=== PATIENT | female | born 1975 | race Hispanic/Latino ===

== ENCOUNTER → 2019-05-14 | Day surgery (SDC) | payer BC ==
[2019-05-07 15:14] LABS: BASOPHILS % 0.3 % (0.0-1.0); EOSINOPHILS % 0.6 % (0.0-6.0); HEMATOCRIT 37.8 % (34.2-44.1); HEMOGLOBIN 11.9 g/dL (12.0-16.0); LYMPHOCYTES # (AUTO) 1.6 (1.0-3.2); LYMPHOCYTES % 24.9 % (18.0-39.1); MEAN CORPUSCULAR HEMOGLOBIN 26.3 pg (28-32); MEAN CORPUSCULAR HGB CONC 31.5 g/dL (31-35); MEAN CORPUSCULAR VOLUME 83.6 fL (81-99); MONOCYTES # (AUTO) 0.5 (0.2-0.8); MONOCYTES % 7.9 % (4.4-11.3); NEUTROPHILS # (AUTO) 4.2 (2.1-6.9); NEUTROPHILS % 66.1 % (38.7-80.0); PLATELET COUNT 291 x10e3/uL (140-360); RED BLOOD COUNT 4.52 x10e6/uL (3.6-5.1); RED CELL DISTRIBUTION WIDTH 14.4 % (11.7-14.4)
[2019-05-07 15:32] LABS: BLOOD UREA NITROGEN 17 mg/dL (7-26); BUN/CREATININE RATIO 21 (6-25); CALCIUM 8.9 mg/dL (8.4-10.2); CARBON DIOXIDE 23 mmol/L (22-29); CHLORIDE 107 mmol/L (98-107); CREATININE, SERUM 0.81 mg/dL (0.57-1.11); EST GLOMERULAR FILTRATION RATE > 60 ML/MIN (60-); GLUCOSE 105 mg/dL (74-118); SODIUM 138 mmol/L (136-145)
--- NOTE | 2019-05-07 15:36 | Diagnostic Imaging Report ---
EXAMINATION: CHEST 2 VIEWS INDICATION: Pre-operative COMPARISON: None FINDINGS: LINES/TUBES:None LUNGS:The lungs are well-inflated. No focal consolidation or pulmonary edema. PLEURA:No pleural effusion or pneumothorax. MEDIASTINUM:The cardiomediastinal silhouette appears normal in size and shape. BONES/SOFT TISSUES:No acute osseous injury. ABDOMEN:No free air under the diaphragm. IMPRESSION: No focal pneumonia or pulmonary edema. Signed by: Madi Carmona MD on 05/07/2019 3:33 PM
[~2019-05-14] MED LIST: ACETAMINOPHEN 1000 MG/100 ML IV ONE; BETAMETHASONE DISODIUM PHOS 6 MG/ML VIAL ONE; BUPIVACAINE HCL 0.5% INJ 30 ML VIAL INJ ONE; CEFAZOLIN SOD 1 GM/NS 50ML 100 ML IV ONE; DEXAMETHASONE SOD PHOS INJ 4 MG/ML VIAL ONE; FENTANYL CITRATE/PF 100MCG/2 ML INJ ONE; KETOROLAC TROMETHAMINE 30 MG/ML VIAL ONE; LIDOCAINE HCL 1% LOCAL INJ 20 ML VIAL ONE; LIDOCAINE HCL 2% LOCAL INJ 5 ML SDV VIAL INJ ONE; MIDAZOLAM HCL 2 MG/2 ML VIAL ONE; MUPIROCIN 2% OINT 22 GM TUBE ONE; OMEPRAZOLE40 MG PO; ONDANSETRON HCL INJ 2MG/ML 2ML 2 MG/ML VIAL ONE; PROPOFOL IV EMULSION 10 MG/ML 20 ML VIAL ONE; SEVOFLURANE INHAL SOLN 250 ML PEN BTL ONE; VIMOVO PO
--- OUTSIDE RECORDS SUMMARY | 2019-05-14 05:50 | XMS REPORT ---
[facility] Address Unknown Phone Unavailable Care Team Providers Care Precision Devices Inspector/Tester Name Role Phone JONATAN LOPEZ Unavailable Unavailable Problems This patient has no known problems. Allergies, Adverse Reactions, Alerts This patient has no known allergies or adverse reactions. Medications This patient has no known medications. Results Test Description Test Time Test Comments Text Results Atomic Results Result Comments CHEST 2 VIEWS 2019-05-07 15:32:00 [place] [address] Patient Name: CASS LAW MR #: [id number] : 1975 Age/Sex: 44/F Req #: [id number] Adm Physician: Ordered by: JONATAN LOPEZ DPM Report #: [id number] Location: OR Room/Bed: Procedure: [id number] DX/CHEST 2 VIEWS Exam Date: Exam Time: REPORT STATUS: Signed EXAMINATION: CHEST 2 VIEWS INDICATION: Pre-operative COMPARISON: None FINDINGS: LINES/TUBES:None LUNGS:The lungs are well- inflated. No focal consolidation or pulmonary edema. PLEURA:No pleural effusion or pneumothorax. MEDIASTINUM:The cardiomediastinal silhouette appears normal in size and shape. BONES/SOFT TISSUES:No acute osseous injury. ABDOMEN:No free air under the diaphragm. IMPRESSION: No focal pneumonia or pulmonary edema. Signed by: Fei Oliveros MD on 05/07/2019 3:33 PM Dictated By: FEI OLIVEROS MD [id number] Transcribed By: ELENA on 05/07/19 1533 COPY TO: JONATAN LOPEZ DPM SCR MAMM BILATERAL CAROLYN CAD DIGITAL 2018-12-20 09:48:36 - SCR MAMM BILATERAL CAROLYN CAD DIGITALBILATERAL DIGITAL SCREENING MAMMOGRAM 3D/2D WITH CAD: 12/18/2018CLINICAL: Asymptomatic. Digital breast tomosynthesis was performed in addition to routine CC and MLO views. Current mammographic images were evaluated by either a Celect M-Vu or a [employer] ImageChecker CAD (computer aided detection system). Comparison is made to exams dated 11/14/2017 mammogram, 07/26 mammogram, and 06/04/2014 mammogram - [facility]. There are scattered fibroglandular tissues in both breasts. There are benign calcifications in both breasts. No suspicious mass, architectural distortion, malignant type calcification, or lymph node abnormality detected. Breast architecture is stable compared to prior exams.IMPRESSION: BENIGNThere is no mammographic evidence of malignancy. Resume annual screening mammography in one year. Jean Marie parada/shade:12/20/2018 09:48:36 copy to: [facility], ph: [phone], fax: [phone] Technologist: Lennie Reese , [facility] sent: BIRADS 1-2 Normal Mammogram BI-RADS: 2 Benign
--- NOTE | 2019-05-14 09:20 | Diagnostic Imaging Report ---
Left foot, 2 views. History: Postop. Findings: Overlying casting material and surgical drain are noted. Bone mineralization is normal. Surgical pin traverses the fourth toe. Bones are in gross anatomic alignment. There is no evidence of acute fracture or dislocation. There are no lytic or sclerotic lesions. The joint spaces are within normal limits. A small plantar calcaneal spur is present. IMPRESSION: Postoperative changes as noted above. Signed by: Mirza Crespo on 05/14/2019 9:17 AM
[2019-05-14 10:00] VITALS: BP 142/74
--- NOTE | 2019-05-14 15:01 | Operative Report ---
DATE OF PROCEDURE: 05/14/2019 SURGEON: Higinio Butterfield DPM PREOPERATIVE DIAGNOSES: 1. Painful hallux valgus deformity, left foot. 2. Painful contracted hammertoe, 4th digit, left foot. 3. Painful contracted hammertoe, 5th digit, left foot. 4. Painful heel spur syndrome, left foot. POSTOPERATIVE DIAGNOSES: Confirmed. OPERATIVE PROCEDURES: 1. Silver bunionectomy, left foot. 2. Arthroplasty of 4th digit with K-wire fixation. 3. Arthroplasty of 5th digit. 4. Resection of plantar calcaneal heel spur. 5. Trigger point shot of cortisone. 6. Intraoperative use of fluoroscopy. 7. Application of posterior splint. ANESTHESIA: General. HEMOSTASIS: Pneumatic thigh tourniquet at 350 mmHg. PROCEDURE IN DETAIL: The patient was taken into the operating room and placed on the operating table in supine position. Following induction of general anesthesia by the anesthesiologist, Webril wraps were placed on the patient's left thigh, followed by application of left thigh tourniquet. The left lower extremity was then prepped and draped in the usual aseptic manner and following procedures were then performed: Procedure #1: Silver bunionectomy, left foot. Attention was directed to the dorsal medial aspect of the 1st MPJ, where a 6 cm linear incision was performed. Incision was deepened down to the joint capsule. Longitudinal capsulotomy was then performed exposing the dorsal medial exostosis of the 1st metatarsal head. Via the use of an oscillating saw, dorsal medial exostosis was excised from the operation site in toto. All rough and bony edges were rasped smooth. Procedures #2 and 3: Arthroplasty of 4th and 5th digits with K-wire fixation of 4th. Attention was then directed to the dorsal aspect of the above-mentioned toes, where a 3 cm linear incision was performed. Incision was deepened down to the joint capsule. Transverse capsulotomy was then performed exposing the head of the proximal phalanxes. Via the use of an oscillating saw, head of the proximal phalanx was then excised from the operation site in toto. Fourth toe was still noted to be contracted, so a 0.045 K-wire was introduced up to the metatarsophalangeal joint to achieve proper anatomic reduction. Procedure #4: Resection of plantar calcaneal heel spur, left foot. Attention was then directed to the medial aspect of the left heel, where a 4 to 5 cm linear incision was performed. Incision was deepened down to the plantar fascia level. The plantar fascia was then clearly visualized. The medial one-half of the plantar fascia was then resected exposing the plantar calcaneal spur. Utilizing a reciprocating saw and reciprocating bur, the plantar calcaneal heel spur was excised. Procedure #5: Intraoperative use of fluoroscopy was then used to make sure proper resection was obtained. There is still noted to be a lateral plantar calcaneal spur noted. It was left alone secondary to not detaching completely through the plantar fascia. All areas were then copiously flushed with sterile antibiotic solution and suction and closure was then obtained utilizing 3-0 Vicryl, 4-0 Vicryl, and 4-0 nylon for capsule, subcutaneous tissue, and skin respectively. A TLS 7 mm drain was inserted to the heel area to prevent any type of hematoma formation. Procedure #6: Trigger point shot of cortisone was then given to the 1st and 4th interspace of the left lower extremity. Then, approximately 15 mL of 0.5% plain Marcaine plus 10 mL of 1% Xylocaine plain were then used to achieve local anesthesia of above-mentioned surgical areas. Sterile dressing was applied. Upon release of the thigh tourniquet, blood hyperemia was noted immediate to all digits of the patient's left foot. Procedure #7: Application of posterior splint. A properly placed posterior splint was then applied keeping the foot at 90 degrees with respect to the leg and to try for any type of postop complications. The patient was then transferred from the OR to recovery room with vital signs stable and neurovascular status intact. No intraoperative complications were encountered. Blood loss from the surgery was minimal. The patient is to remain nonweightbearing with the aid of crutches, keep her foot elevated, and is to apply an ice pack to the ankle joint area. BLACK Yi/JENNIFER /[id number]
== END | disposition home or self-care (01) ==
LOC: OR 05:44
PROVIDERS: ATTEND Podiatrist Foot Surgery
DX: M20.12 Hallux valgus (acquired), left foot (principal); M20.42 Other hammer toe(s) (acquired), left foot; M77.32 Calcaneal spur, left foot; M79.672 Pain in left foot; K21.9 Gastro-esophageal reflux disease without esophagitis; G25.81 Restless legs syndrome; Z01.812 Encounter for preprocedural laboratory examination; Z01.811 Encounter for preprocedural respiratory examination; Z98.84 Bariatric surgery status
CPT/HCPCS: 28119; 28285 ×2; 28292; 36415; 71046; 73620; 80048; 81025; 85025; C1713; J0131; J0690; J0720; J1100; J1885; J2001 ×2; J2250; J2405; J2704; J3010